=== PATIENT | female | born 1940 | race Caucasian/White ===

== ENCOUNTER 2021-05-15 14:05 | Inpatient (IN) ==
[2021-05-15] MEDS: Gabapentin 400 MG CAPSULE PO SCH (22:00)
[2021-05-16] MEDS: *HR* Enoxaparin 40 MG/0.4 ML SYRINGE SQ SCH (06:22)
[2021-05-16] MEDS: Gabapentin 400 MG CAPSULE PO SCH ×3 (09:14→20:36)
[2021-05-16] MEDS: Aspirin Enteric Coated 81 MG Tablet PO SCH (09:14)
[2021-05-16] MEDS: Cyanocobalamin (B-12) 1,000 MCG TABLET PO SCH (09:15)
[2021-05-17] MEDS: *HR* Enoxaparin 40 MG/0.4 ML SYRINGE SQ SCH (05:56)
[2021-05-17 06:07] LABS: Basophils % 0.6 %; Eosinophils # 0.1 K/mcL (0.0-0.6); Eosinophils % 2.5 %; Hematocrit 37.6 % (35.3-44.9); Immature Granulocytes % 0.2 % (0-4); Lymphocytes # 1.2 K/mcL (0.6-4.6); Lymphocytes % 24.6 %; Mean Corpuscular HGB Conc 31.9 g/dL (31.6-35.5); Mean Corpuscular Hemoglobin 27.3 pg (28.0-33.3); Mean Corpuscular Volume 85.5 fL (83.0-100.0); Mean Platelet Volume 10.9 fL (9.4-12.4); Monocytes # 0.8 K/mcL (0.0-1.3); Monocytes % 16.5 %; Neutrophils # 2.7 K/mcL (1.6-8.9); Platelet Count 167 K/mcL (140-400); Red Cell Distribution Width 14.5 % (11.5-14.5); Segmented Neutrophils % 55.6 %; White Blood Count 4.8 K/mcL (4.3-11.1)
[2021-05-17 06:25] LABS: BUN/Creatinine Ratio 14 (6-26); Blood Urea Nitrogen 10 mg/dL (8-23); Calcium 8.2 mg/dL (8.6-10.3); Carbon Dioxide 27 mEq/L (23-29); Chloride 102 mEq/L (98-107); Glucose 129 mg/dL (70-105); Osmolality,Calculated 285 (280-300); Sodium 137 mEq/L (136-145); eGFR For African Americans > 60 (> 60); eGFR For Non-African Americans > 60 (> 60)
[2021-05-17] MEDS: Gabapentin 400 MG CAPSULE PO SCH ×3 (08:08→20:46)
[2021-05-17] MEDS: Cyanocobalamin (B-12) 1,000 MCG TABLET PO SCH (08:08)
[2021-05-17] MEDS: Aspirin Enteric Coated 81 MG Tablet PO SCH (08:08)
[2021-05-18] MEDS: *HR* Enoxaparin 40 MG/0.4 ML SYRINGE SQ SCH (06:21)
[2021-05-18] MEDS: Aspirin Enteric Coated 81 MG Tablet PO SCH (08:09)
[2021-05-18] MEDS: Cyanocobalamin (B-12) 1,000 MCG TABLET PO SCH (08:10)
[2021-05-18] MEDS: Gabapentin 400 MG CAPSULE PO SCH ×3 (08:10→20:18)
[2021-05-19] MEDS: *HR* Enoxaparin 40 MG/0.4 ML SYRINGE SQ SCH (06:03)
[2021-05-19] MEDS: polyethylene glycoL 3350 17 GM POWD.PACK PO SCH (09:06)
[2021-05-19] MEDS: Cyanocobalamin (B-12) 1,000 MCG TABLET PO SCH (09:06)
[2021-05-19] MEDS: Aspirin Enteric Coated 81 MG Tablet PO SCH (09:06)
[2021-05-19] MEDS: Gabapentin 400 MG CAPSULE PO SCH ×3 (09:07→20:04)
[2021-05-20 04:54] LABS: BUN/Creatinine Ratio 14 (6-26); Blood Urea Nitrogen 10 mg/dL (8-23); Calcium 8.5 mg/dL (8.6-10.3); Carbon Dioxide 32 mEq/L (23-29); Chloride 100 mEq/L (98-107); Glucose 110 mg/dL (70-105); Osmolality,Calculated 286 (280-300); Potassium 3.7 mEq/L (3.5-5.1); Sodium 138 mEq/L (136-145); eGFR For African Americans > 60 (> 60); eGFR For Non-African Americans > 60 (> 60)
[2021-05-20] MEDS: *HR* Enoxaparin 40 MG/0.4 ML SYRINGE SQ SCH (04:59)
[2021-05-20] MEDS: Cyanocobalamin (B-12) 1,000 MCG TABLET PO SCH (09:28)
[2021-05-20] MEDS: Aspirin Enteric Coated 81 MG Tablet PO SCH (09:28)
[2021-05-20] MEDS: Gabapentin 400 MG CAPSULE PO SCH ×3 (09:28→21:03)
[2021-05-20] MEDS: polyethylene glycoL 3350 17 GM POWD.PACK PO SCH ×2 (09:28→21:03)
[2021-05-21] MEDS: *HR* Enoxaparin 40 MG/0.4 ML SYRINGE SQ SCH (06:16)
[2021-05-21] MEDS: Cyanocobalamin (B-12) 1,000 MCG TABLET PO SCH (08:16)
[2021-05-21] MEDS: polyethylene glycoL 3350 17 GM POWD.PACK PO SCH ×2 (08:17→20:33)
[2021-05-21] MEDS: Gabapentin 400 MG CAPSULE PO SCH ×3 (08:17→20:32)
[2021-05-21] MEDS: Aspirin Enteric Coated 81 MG Tablet PO SCH (08:17)
[2021-05-22] MEDS: *HR* Enoxaparin 40 MG/0.4 ML SYRINGE SQ SCH (06:33)
[2021-05-22] MEDS: Gabapentin 400 MG CAPSULE PO SCH ×3 (08:41→20:59)
[2021-05-22] MEDS: Cyanocobalamin (B-12) 1,000 MCG TABLET PO SCH (08:41)
[2021-05-22] MEDS: Aspirin Enteric Coated 81 MG Tablet PO SCH (08:41)
[2021-05-22] MEDS: polyethylene glycoL 3350 17 GM POWD.PACK PO SCH ×2 (08:44→21:02)
[2021-05-23] MEDS: *HR* Enoxaparin 40 MG/0.4 ML SYRINGE SQ SCH (04:29)
[2021-05-23] MEDS: Gabapentin 400 MG CAPSULE PO SCH ×3 (08:29→20:33)
[2021-05-23] MEDS: Aspirin Enteric Coated 81 MG Tablet PO SCH (08:29)
[2021-05-23] MEDS: polyethylene glycoL 3350 17 GM POWD.PACK PO SCH ×2 (08:30→20:36)
[2021-05-23] MEDS: Cyanocobalamin (B-12) 1,000 MCG TABLET PO SCH (08:30)
[2021-05-24] MEDS: *HR* Enoxaparin 40 MG/0.4 ML SYRINGE SQ SCH (03:40)
[2021-05-24] MEDS: Aspirin Enteric Coated 81 MG Tablet PO SCH (08:10)
[2021-05-24] MEDS: Cyanocobalamin (B-12) 1,000 MCG TABLET PO SCH (08:10)
[2021-05-24] MEDS: Gabapentin 400 MG CAPSULE PO SCH ×3 (08:10→20:33)
[2021-05-24] MEDS: polyethylene glycoL 3350 17 GM POWD.PACK PO SCH ×2 (08:10→20:35)
[2021-05-25] MEDS: *HR* Enoxaparin 40 MG/0.4 ML SYRINGE SQ SCH (06:24)
[2021-05-25] MEDS: Aspirin Enteric Coated 81 MG Tablet PO SCH (08:33)
[2021-05-25] MEDS: polyethylene glycoL 3350 17 GM POWD.PACK PO SCH (08:34)
[2021-05-25] MEDS: Cyanocobalamin (B-12) 1,000 MCG TABLET PO SCH (08:34)
[2021-05-25] MEDS: Gabapentin 400 MG CAPSULE PO SCH ×3 (08:34→21:38)
[2021-05-26] MEDS: *HR* Enoxaparin 40 MG/0.4 ML SYRINGE SQ SCH (04:58)
[2021-05-26] MEDS: Gabapentin 400 MG CAPSULE PO SCH ×3 (08:35→19:33)
[2021-05-26] MEDS: Cyanocobalamin (B-12) 1,000 MCG TABLET PO SCH (08:36)
[2021-05-26] MEDS: Aspirin Enteric Coated 81 MG Tablet PO SCH (08:36)
[2021-05-27] MEDS: *HR* Enoxaparin 40 MG/0.4 ML SYRINGE SQ SCH (05:33)
[2021-05-27 06:09] LABS: Basophils # 0.1 K/mcL (0.0-0.2); Basophils % 1.2 %; Eosinophils # 0.2 K/mcL (0.0-0.6); Eosinophils % 3.4 %; Hematocrit 34.7 % (35.3-44.9); Hemoglobin 10.9 g/dL (11.5-15.4); Immature Granulocytes % 0.2 % (0-4); Lymphocytes # 1.5 K/mcL (0.6-4.6); Lymphocytes % 30.6 %; Mean Corpuscular HGB Conc 31.4 g/dL (31.6-35.5); Mean Corpuscular Volume 86.1 fL (83.0-100.0); Mean Platelet Volume 10.3 fL (9.4-12.4); Monocytes # 0.5 K/mcL (0.0-1.3); Monocytes % 10.7 %; Neutrophils # 2.7 K/mcL (1.6-8.9); Platelet Count 268 K/mcL (140-400); Red Blood Count 4.03 M/mcL (3.82-4.97); Red Cell Distribution Width 14.2 % (11.5-14.5); Segmented Neutrophils % 53.9 %
[2021-05-27] MEDS: Gabapentin 400 MG CAPSULE PO SCH ×3 (08:25→19:54)
[2021-05-27] MEDS: Aspirin Enteric Coated 81 MG Tablet PO SCH (08:25)
[2021-05-27] MEDS: Cyanocobalamin (B-12) 1,000 MCG TABLET PO SCH (08:25)
[2021-05-27 09:10] LABS: BUN/Creatinine Ratio 12 (6-26); Blood Urea Nitrogen 9 mg/dL (8-23); Calcium 8.4 mg/dL (8.6-10.3); Carbon Dioxide 31 mEq/L (23-29); Chloride 101 mEq/L (98-107); Glucose 114 mg/dL (70-105); Osmolality,Calculated 286 (280-300); Potassium 3.6 mEq/L (3.5-5.1); Sodium 138 mEq/L (136-145); eGFR For African Americans > 60 (> 60); eGFR For Non-African Americans > 60 (> 60)
[2021-05-28] MEDS: *HR* Enoxaparin 40 MG/0.4 ML SYRINGE SQ SCH (04:08)
[2021-05-28] MEDS: Cyanocobalamin (B-12) 1,000 MCG TABLET PO SCH (08:34)
[2021-05-28] MEDS: Gabapentin 400 MG CAPSULE PO SCH ×3 (08:34→20:27)
[2021-05-28] MEDS: Aspirin Enteric Coated 81 MG Tablet PO SCH (08:34)
[2021-05-29] MEDS: *HR* Enoxaparin 40 MG/0.4 ML SYRINGE SQ SCH (05:39)
[2021-05-29 05:57] LABS: Hemoglobin 11.3 g/dL (11.5-15.4); Mean Corpuscular HGB Conc 30.5 g/dL (31.6-35.5); Mean Corpuscular Hemoglobin 26.8 pg (28.0-33.3); Mean Corpuscular Volume 87.7 fL (83.0-100.0); Mean Platelet Volume 10.3 fL (9.4-12.4); Platelet Count 288 K/mcL (140-400); Red Blood Count 4.22 M/mcL (3.82-4.97); Red Cell Distribution Width 14.3 % (11.5-14.5); White Blood Count 4.8 K/mcL (4.3-11.1)
[2021-05-29 06:15] LABS: BUN/Creatinine Ratio 13 (6-26); Blood Urea Nitrogen 10 mg/dL (8-23); Calcium 8.8 mg/dL (8.6-10.3); Carbon Dioxide 32 mEq/L (23-29); Chloride 101 mEq/L (98-107); Glucose 110 mg/dL (70-105); Osmolality,Calculated 286 (280-300); Potassium 3.7 mEq/L (3.5-5.1); Sodium 138 mEq/L (136-145); eGFR For African Americans > 60 (> 60); eGFR For Non-African Americans > 60 (> 60)
[2021-05-29] MEDS: Gabapentin 400 MG CAPSULE PO SCH ×3 (08:22→19:32)
[2021-05-29] MEDS: Aspirin Enteric Coated 81 MG Tablet PO SCH (08:23)
[2021-05-29] MEDS: Cyanocobalamin (B-12) 1,000 MCG TABLET PO SCH (08:23)
[2021-05-30] MEDS: *HR* Enoxaparin 40 MG/0.4 ML SYRINGE SQ SCH (06:13)
[2021-05-30] MEDS: Gabapentin 400 MG CAPSULE PO SCH ×3 (08:31→20:24)
[2021-05-30] MEDS: Cyanocobalamin (B-12) 1,000 MCG TABLET PO SCH (08:31)
[2021-05-30] MEDS: Aspirin Enteric Coated 81 MG Tablet PO SCH (08:31)
[2021-05-31] MEDS: *HR* Enoxaparin 40 MG/0.4 ML SYRINGE SQ SCH (05:04)
[2021-05-31 06:52] VITALS: RESP 16; TEMP 98.4
[2021-05-31] MEDS: Cyanocobalamin (B-12) 1,000 MCG TABLET PO SCH (08:07)
[2021-05-31] MEDS: Aspirin Enteric Coated 81 MG Tablet PO SCH (08:07)
[2021-05-31] MEDS: Gabapentin 400 MG CAPSULE PO SCH (08:07)
[2021-05-31 09:48] VITALS: BP 136/79; PULSE 81; O2SAT 97
== END 2021-05-31 11:40 | disposition home health service (06) | DRG 65 ==
LOC: INPGRE 15:34
PROVIDERS: ADMIT Family Medicine; ATTEND Family Medicine